=== PATIENT | male | born 1955 | race Caucasian/White ===

== ENCOUNTER 2016-12-14 05:50 | Inpatient (IN) | payer BC ==
[~2016-12-14] VITALS: Ht 182.9 cm; Wt 100.2 kg
[2016-12-14] MEDS ORDERED: SOD CHLORIDE 0.9% 1,000 ML IV SCH (08:00)
[2016-12-14] MEDS ORDERED: ACETAMINOPHEN 325 MG TAB PO PRN (08:00)
[2016-12-14] MEDS: NICOTINE (21 MG/24 HR) PATCH TRANSDERM SCH (08:17)
[2016-12-14] MEDS: PANTOPRAZOLE 40 MG INJ IV SCH (08:17)
[2016-12-14] MEDS: PIPER-TAZO 3.375 GM IV (PMX) 100 ML IVPB SCH ×3 (08:17→22:45)
[2016-12-14] MEDS: morphine 2 MG INJ IV PRN ×2 (08:20→12:39)
[2016-12-14] MEDS: DEXTROSE 5%-0.9% NACL 1,000 ML IV SCH ×2 (08:28→20:45)
[2016-12-14 08:41] VITALS: BP 117/66; RESP 20
[2016-12-14 12:17] VITALS: BP 117/66; PULSE 79; RESP 20
--- NOTE | 2016-12-14 13:55 | HP ---
Date/Time of Note Date/Time of Note DATE: 12/14/16 TIME: 13:48 Assessment/Plan VTE Prophylaxis VTE Prophylaxis Intervention: ambulation Lines/Catheters IV Catheter Type (from Nrs): Peripheral IV Urinary Cath still in place: No Assessment/Plan Chief Complaint/Hosp Course 1. Anorectal fistula with skin abscess 2.SIRS 3. BPH 4. erectile dysfunction 5. Nicotine dependence Problems: Assessment/Plan 1. Keep NPO for possible surgery 2. Dr Goncalves for I and D 3. Lactobacili after pt is not NPO 4. Start Tamsulosin after procedure 5. Continue a/b HPI/ROS Admit Date/Time Admit Date/Time Dec 14, 2016 at 07:04 Hx of Present Illness Pt rreported that he was sitting on the cold cement for hours and after developed pain in right buttock. He had pain for 2 days and then he pt went to [facility] ER at the midnight complaining of pararectal pain and itching. Per Insurance he was transferred to [facility]. Denied any other symptoms. ROS Respiratory: cough, pain, No no complaints, No other, No pleuritic pain, No shortness of breath, No sputum, No wheezing Cardiovascular: chest pain, edema, No lightheadedness, No no complaints, No orthopenea, No other, No palpitations, No paroxysmal nocturnal dyspnea Genitourinary: bleeding, discharge, dysuria, flank pain, hematuria, no complaints, other (rectile dysfunction) Musculoskeletal: back pain, No bone/joint pain, No neck pain, No no complaints, No other, No restricted range of motion, No swelling Neurologic: confusion, headache, syncope, No dizziness, No focal-weakness, No no complaints, No other, No seizure PMH/Family/Social Past Medical History Medical History: other (pulmonary embolism) Past Surgical History Past Surgical Hx: other (I finger right hand ingrown nail removal) Family History Significant Family History: hypertension (mother) Social History Alcohol Use: occasionally Smoking Status: Current every day smoker Drug Use: none Exam/Review of Systems Vital Signs Vitals Vital Signs Date Time Temp Pulse Resp B/P Pulse Ox O2 Delivery O2 Flow Rate FiO2 12/14/16 12:17 98.7 79 20 117/66 98 Room Air Exam Constitutional: alert, oriented ENMT: nl external ears & nose Neck: supple Respiratory: clear to auscultation Genitourinary - Male: nl penis, nl scrotum Extremities: normal pulses Skin: nl turgor, other (right side buttock abscess) Medications Medications Current Medications Pantoprazole (Protonix Iv) 40 mg DAILY@06 IV Last administered on 12/14/16 08: 17; Admin Dose 40 MG; Start 12/14/16 at 08:30 Acetaminophen 650 mg 650 mg Q6H PRN PO PAIN AND OR ELEVATED TEMP; Start at 08:00 Piperacillin Sod/ Tazobactam Sod (Zosyn 3.375gm/ 100 ml (Pmx)) 100 ml @ 200 mls /hr Q8 IVPB Last administered on 12/14/16 08:17; Admin Dose 200 MLS/HR; Start 12/14/16 at 08:30 Morphine Sulfate (morphine) 2 mg Q4H PRN IV PAIN Last administered on 12:39; Admin Dose 2 MG; Start 12/14/16 at 08:00 Nicotine 1 patch 1 patch DAILY TRANSDERM Last administered on 12/14/16 08:17; Admin Dose 1 PATCH; Start 12/14/16 at 09:00 Dextrose/Sodium Chloride (D5-NS) 1,000 ml @ 75 mls/hr [id number] IV Last administered on 12/14/16 08:28; Admin Dose 75 MLS/HR; Start 12/14/16 at 08:30 Influenza Virus Vaccine (Fluzone) 0.5 ml ONCE ONCE IM* ; Start 12/15/16 at 09:00 ; Stop 12/15/16 at 09:01 HEAVEN SEXTON Dec 14, 2016 13:55
[2016-12-14 14:30] VITALS: BP 120/70; RESP 20
[2016-12-14 20:16] VITALS: BP 108/55; RESP 20
[2016-12-14] MEDS ORDERED: LIDOCAINE 2%/EPI MPF (SDV) 20 ML VIAL INJ ONE (20:30)
--- NOTE | 2016-12-14 20:39 | CONS ---
Date/Time of Note Date/Time of Note DATE: 12/14/16 TIME: 20:26 Assessment/Plan Assessment/Plan Chief Complaint/Hosp Course 1. Right buttock abscess: CT pelvis showing fluid filled elongated tract from right anorectal junction to right gluteal fat extending to skin surface -I&D today -local care -hot packs -abx -cultures 2. Leukocytosis: likely 2/2 above -abx -as above 3. BPH -medical management 4. Obesity:BMI 30 -weight management -diet and exercise optimization Thank you. Patient seen and examined in collaboration with Dr. Maciej Goncalves. Problems: Consultation Date/Type/Reason Admit Date/Time Dec 14, 2016 at 07:04 Date of Consultation: Dec 14, 2016 Type of Consultation: surgical Reason for Consultation abscess of right buttock Referring Provider: HEAVEN SEXTON Hx of Present Illness Abel Waite is a 61 yo man who was transferred to [facility] with complaints of right buttock pain. He reports that the pain began a few days ago after sitting on the concrete for a prolonged period of time. He denies injury or injecting anything into the area. Upon assessment he has a fluid filled area with erythema. He denies drainage from the area. He denies fevers, chills, sob, congested cough, cp, palpitations. General surgery was asked to evaluate. Respiratory: cough, pain, No no complaints, No other, No pleuritic pain, No shortness of breath, No sputum, No wheezing Cardiovascular: chest pain, edema, No lightheadedness, No no complaints, No orthopenea, No other, No palpitations, No paroxysmal nocturnal dyspnea Genitourinary: bleeding, discharge, dysuria, flank pain, hematuria, no complaints, other (rectile dysfunction) Musculoskeletal: back pain, No bone/joint pain, No neck pain, No no complaints, No other, No restricted range of motion, No swelling Neurologic: confusion, headache, syncope, No dizziness, No focal-weakness, No no complaints, No other, No seizure Past Medical History Medical History: other (pulmonary embolism) Past Surgical History Past Surgical Hx: other (ingrown nail removal) Family History Significant Family History: no pertinent family hx Social History Alcohol Use: occasionally Smoking Status: Current every day smoker Drug Use: none Exam/Review of Systems Vital Signs Vitals Vital Signs Date Time Temp Pulse Resp B/P Pulse Ox O2 Delivery O2 Flow Rate FiO2 12/14/16 14:30 98.1 78 20 120/70 98 12/14/16 12:17 Room Air Exam Constitutional: alert, oriented Psych: anxiety Head: atraumatic, normocephalic Eyes: nl lids, nl sclera ENMT: mucosa pink and moist, nl nasal mucosa & septum Neck: non-tender, supple Cardiovascular: nl pulses, regular rate and rhythm Gastrointestinal: non-tender, soft Genitourinary - Male: nl penis, nl scrotum Musculoskeletal: nl extremities to inspection Extremities: normal pulses Neurological: nl mental status, nl speech, nl strength Skin: other (right buttock erythema with area of fluctuance, tender) Medications Medications Current Medications Pantoprazole (Protonix Iv) 40 mg DAILY@06 IV Last administered on 12/14/16 08: 17; Admin Dose 40 MG; Start 12/14/16 at 08:30 Acetaminophen 650 mg 650 mg Q6H PRN PO PAIN AND OR ELEVATED TEMP; Start at 08:00 Piperacillin Sod/ Tazobactam Sod (Zosyn 3.375gm/ 100 ml (Pmx)) 100 ml @ 200 mls /hr Q8 IVPB Last administered on 12/14/16 15:16; Admin Dose 200 MLS/HR; Start 12/14/16 at 08:30 Nicotine 1 patch 1 patch DAILY TRANSDERM Last administered on 12/14/16 08:17; Admin Dose 1 PATCH; Start 12/14/16 at 09:00 Dextrose/Sodium Chloride (D5-NS) 1,000 ml @ 100 mls/hr Q10H IV Last administered on 12/14/16 08:28; Admin Dose 75 MLS/HR; Start 12/14/16 at 08:30 Influenza Virus Vaccine (Fluzone) 0.5 ml ONCE ONCE IM* ; Start 12/15/16 at 09:00 ; Stop 12/15/16 at 09:01 Tamsulosin HCl (Flomax) 0.4 mg ONCE ONCE PO ; Start 12/15/16 at 09:00; Stop at 09:01 Lactobacillus Acidophilus/ Rhamnosus (Culturelle) 1 cap BID PO ; Start 12/15/16 at 09:00 Morphine Sulfate (morphine) 2 mg Q3H PRN IV PAIN; Start 12/14/16 at 18:00 Lidocaine/ Epinephrine (Xylocaine 2%/ Epi Mpf(Sdv)) 20 ml ONCE ONCE INJ ; Start 12/14/16 at 20:30; Stop 12/14/16 at 20:31 ABRAM ABRAHAM NP Dec 14, 2016 20:37
--- NOTE | 2016-12-14 21:13 | OPR ---
Date/Time of Note Date/Time of Note DATE: 12/14/16 TIME: 21:13 Operative Report Procedure Date: Dec 14, 2016 Preoperative Diagnosis Right buttock abscess Postoperative Diagnosis Right buttock abscess Operation/Procedure Performed Incision and Drainage right buttock abscess Surgeon see signature line Sink Maker none Anesthesia Type: other Estimated Blood Loss: 0 - 10 ml's Transfusion none Specimen none; cultures sent Grafts/Implants none Complications none Indications per notes Procedure Description r/b/a were fully reviewed and agreed upon Patient placed on his bed lateral decubitus. Area prepped and draped in sterile fashion. Time out done. Local anesthetic administered to right buttock. Incision was made into the abscess cavity of the right buttock and pus drained. Using manual pressure pus was also expelled from surrounding tissue. Wound culture was obtained. Wound was irrigated and packed with iodoform packing strips. Covered with 4x4 gauze and abd pad. ABRAM ABRAHAM NP Dec 14, 2016 21:13
[2016-12-15 02:17] VITALS: BP 100/53; RESP 19
[2016-12-15] MEDS: DEXTROSE 5%-0.9% NACL 1,000 ML IV SCH ×2 (04:34→06:45)
[2016-12-15] MEDS: morphine 2 MG INJ IV PRN ×2 (04:39→18:03)
[2016-12-15 06:34] LABS: BASOPHIL # 0.1 10^3/ul (0.0-0.1); BASOPHILS % 0.7 % (0.0-2.0); EOSINOPHILS # 0.2 10^3/ul (0.0-0.5); EOSINOPHILS % 1.9 % (0.0-7.0); HEMATOCRIT 45.8 % (42.0-52.0); HEMOGLOBIN 15.1 g/dl (14.0-18.0); LYMPHOCYTES # 2.3 10^3/ul (0.8-2.9); LYMPHOCYTES % 24.2 % (15.0-51.0); MEAN CORPUSCULAR HEMOGLOBIN 29.6 pg (29.0-33.0); MEAN CORPUSCULAR VOLUME 89.8 fl (82.0-101.0); MEAN PLATELET VOLUME 9.9 fl (7.4-10.4); MONOCYTE # 0.9 10^3/ul (0.3-0.9); MONOCYTES % 9.3 % (0.0-11.0); NEUTROPHILS % 63.6 % (39.0-77.0); PLATELET COUNT 172 10^3/UL (140-415); RED CELL DISTRIBUTION WIDTH 12.4 % (11.5-14.5); WHITE BLOOD COUNT 9.4 10^3/ul (4.8-10.8)
[2016-12-15] MEDS: PIPER-TAZO 3.375 GM IV (PMX) 100 ML IVPB SCH ×3 (06:42→21:25)
[2016-12-15] MEDS: PANTOPRAZOLE 40 MG INJ IV SCH (06:42)
[2016-12-15 07:36] LABS: CREATININE 0.95 mg/dl (0.61-1.24)
[2016-12-15 08:44] VITALS: BP 111/60; RESP 18
[2016-12-15] MEDS ORDERED: TAMSULOSIN (SR) 0.4 MG CAP PO ONE (09:00)
[2016-12-15] MEDS ORDERED: INFLUENZA VIRUS VACCINE 0.5 ML SYG IM* ONE (09:00)
[2016-12-15] MEDS: NICOTINE (21 MG/24 HR) PATCH TRANSDERM SCH (09:01)
[2016-12-15] MEDS: LACTOBACILLUS RHAMNOSUS CAP PO SCH ×2 (12:02→21:25)
[2016-12-15] MEDS: SODIUM HYPOCHLORITE 1/40% 1L IRRIG IRR SCH (12:05)
--- NOTE | 2016-12-15 12:48 | PN ---
Date/Time of Note Date/Time of Note DATE: 12/15/16 TIME: 12:46 Assessment/Plan VTE Prophylaxis VTE Prophylaxis Intervention: ambulation Lines/Catheters IV Catheter Type (from Nrs): Peripheral IV Urinary Cath still in place: No Assessment/Plan Chief Complaint/Hosp Course 1. Anorectal fistula with skin abscess. S/p Iand D 2. SIRS 3. BPH 4. erectile dysfunction 5. Nicotine dependence 6. Overweight Problems: Assessment/Plan 1. continue wound care 2. Continue a/b and probiotics 3. Control BPH Subjective 24 Hr Interval Summary Constitutional: improved, no complaints Musculoskeletal: swelling (buttock) Exam/Review of Systems Vital Signs Vitals Vital Signs Date Time Temp Pulse Resp B/P Pulse Ox O2 Delivery O2 Flow Rate FiO2 12/15/16 08:44 98.5 71 18 111/60 97 12/14/16 12:17 Room Air Intake and Output 12/14/16 12/14/16 12/15/16 15:00 23:00 07:00 Intake Total 100 ml 935 ml 1050 ml Output Total 1000 ml Balance 100 ml 935 ml 50 ml Exam Gastrointestinal: surgical scars (right buttock) Results Result Diagram: 12/15/1652112/15/1622 Results 24 hrs Laboratory Tests Test 12/15/16 05:22 White Blood Count 9.4 Red Blood Count 5.10 Hemoglobin 15.1 Hematocrit 45.8 Mean Corpuscular Volume 89.8 Mean Corpuscular Hemoglobin 29.6 Mean Corpuscular Hemoglobin Concent 33.0 Red Cell Distribution Width 12.4 Platelet Count 172 Mean Platelet Volume 9.9 Neutrophils % 63.6 Lymphocytes % 24.2 Monocytes % 9.3 Eosinophils % 1.9 Basophils % 0.7 Nucleated Red Blood Cells % 0.0 Neutrophils # 6.0 Lymphocytes # 2.3 Monocytes # 0.9 Eosinophils # 0.2 Basophils # 0.1 Nucleated Red Blood Cells # 0.0 Sodium Level 141 Potassium Level 4.0 Chloride Level 110 Carbon Dioxide Level 23 Anion Gap 12 Blood Urea Nitrogen 9 Creatinine 0.95 Glucose Level 101 Calcium Level 8.0 L Medications Medications Current Medications Pantoprazole (Protonix Iv) 40 mg DAILY@06 IV Last administered on 12/15/16t 06: 42; Admin Dose 40 MG; Start 12/14/16 at 08:30 Acetaminophen 650 mg 650 mg Q6H PRN PO PAIN AND OR ELEVATED TEMP; Start at 08:00 Piperacillin Sod/ Tazobactam Sod (Zosyn 3.375gm/ 100 ml (Pmx)) 100 ml @ 200 mls /hr Q8 IVPB Last administered on 12/15/16 06:42; Admin Dose 200 MLS/HR; Start 12/14/16 at 08:30 Nicotine 1 patch 1 patch DAILY TRANSDERM Last administered on 12/15/16 09:01; Admin Dose 1 PATCH; Start 12/14/16 at 09:00 Dextrose/Sodium Chloride (D5-NS) 1,000 ml @ 100 mls/hr Q10H IV Last administered on 12/15/16 04:34; Admin Dose 100 MLS/HR; Start 12/14/16 at 08:30 Lactobacillus Acidophilus/ Rhamnosus (Culturelle) 1 cap BID PO Last administered on 12/15/16 12:02; Admin Dose 1 CAP; Start 12/15/16 at 09:00 Morphine Sulfate (morphine) 2 mg Q3H PRN IV PAIN Last administered on 04:39; Admin Dose 2 MG; Start 12/14/16 at 18:00 Sodium Hypochlorite (Dakin'S (Dilute 1/40%)) 1 applic DAILY IRR Last administered on 12/15/16 12:05; Admin Dose 1 APPLIC; Start 12/15/16 at 09:00 HEAVEN SEXTON Dec 15, 2016 12:48
[2016-12-15] MEDS ORDERED: HYDROCODONE/APAP (5/325) TAB GTB PRN (13:00)
--- NOTE | 2016-12-15 13:54 | PN ---
Date/Time of Note Date/Time of Note DATE: 12/15/16 TIME: 13:47 Assessment/Plan Lines/Catheters IV Catheter Type (from [facility]): Peripheral IV Chaves in Place (from [facility]): No Assessment/Plan Chief Complaint/Hosp Course 1. Right buttock abscess: CT pelvis showing fluid filled elongated tract from right anorectal junction to right gluteal fat extending to skin surface; s/p I&D ; cultures pending -continue local care -hot packs -abx -patient may be discharged per medical team with wound care 2. Leukocytosis: likely 2/2 above: normalized -abx -as above 3. BPH -medical management 4. Obesity:BMI 30 -weight management -diet and exercise optimization Thank you. Patient seen and examined in collaboration with Dr. Maciej Goncalves. Problems: Subjective 24 Hr Interval Summary Pain in buttock much improved. Leukocytosis improved. No fevers, chills, sob, congested cough, n/v/d/dysuria, [place], dizziness, cp, palpitations. Wound with mod drainage. Exam/Review of Systems Vital Signs Vitals Vital Signs Date Time Temp Pulse Resp B/P Pulse Ox O2 Delivery O2 Flow Rate FiO2 12/15/16 08:44 98.5 71 18 111/60 97 12/14/16 12:17 Room Air Intake and Output 12/14/16 12/14/16 12/15/16 15:00 23:00 07:00 Intake Total 100 ml 935 ml 1050 ml Output Total 1000 ml Balance 100 ml 935 ml 50 ml Exam Free Text/Dictation Constitutional: alert, oriented Psych: anxiety Head: atraumatic, normocephalic Eyes: nl lids, nl sclera ENMT: mucosa pink and moist, nl nasal mucosa & septum Neck: non-tender, supple Cardiovascular: nl pulses, regular rate and rhythm Gastrointestinal: non-tender, soft Genitourinary - Male: nl penis, nl scrotum Musculoskeletal: nl extremities to inspection Extremities: normal pulses Neurological: nl mental status, nl speech, nl strength Skin: other (right buttock packed with mod drainage, improved tenderness) Results Result Diagram: 12/15/16 0522 12/15/16 0522 ABRAM ABRAHAM NP Dec 15, 2016 13:54
[2016-12-15 15:22] VITALS: BP 116/57; RESP 18
[2016-12-15 19:36] VITALS: BP 121/74; RESP 18
[2016-12-16 02:05] VITALS: BP 114/56; RESP 20
[2016-12-16 05:58] LABS: BASOPHIL # 0.1 10^3/ul (0.0-0.1); BASOPHILS % 0.9 % (0.0-2.0); EOSINOPHILS # 0.3 10^3/ul (0.0-0.5); EOSINOPHILS % 3.6 % (0.0-7.0); HEMATOCRIT 45.8 % (42.0-52.0); HEMOGLOBIN 15.3 g/dl (14.0-18.0); LYMPHOCYTES # 2.4 10^3/ul (0.8-2.9); LYMPHOCYTES % 33.6 % (15.0-51.0); MEAN CORPUSCULAR HEMOGLOBIN 30.4 pg (29.0-33.0); MEAN CORPUSCULAR HGB CONC 33.4 g/dl (32.0-37.0); MEAN CORPUSCULAR VOLUME 90.9 fl (82.0-101.0); MEAN PLATELET VOLUME 9.8 fl (7.4-10.4); MONOCYTE # 0.6 10^3/ul (0.3-0.9); MONOCYTES % 9.1 % (0.0-11.0); NEUTROPHIL # 3.7 10^3/ul (1.6-7.5); NEUTROPHILS % 52.7 % (39.0-77.0); PLATELET COUNT 182 10^3/UL (140-415); RED BLOOD COUNT 5.04 10^6/ul (4.70-6.10); RED CELL DISTRIBUTION WIDTH 12.2 % (11.5-14.5)
[2016-12-16] MEDS ORDERED: PANTOPRAZOLE (EC) 40 MG TAB PO SCH (06:00)
[2016-12-16] MEDS: PIPER-TAZO 3.375 GM IV (PMX) 100 ML IVPB SCH ×3 (06:00→15:15)
[2016-12-16 06:30] LABS: CALCIUM 8.7 mg/dl (8.4-10.2); CREATININE 0.96 mg/dl (0.61-1.24)
[2016-12-16 08:16] VITALS: BP 128/70; RESP 20
[2016-12-16] MEDS: NICOTINE (21 MG/24 HR) PATCH TRANSDERM SCH (08:42)
[2016-12-16] MEDS: LACTOBACILLUS RHAMNOSUS CAP PO SCH (08:42)
[2016-12-16] MEDS: SODIUM HYPOCHLORITE 1/40% 1L IRRIG IRR SCH (08:43)
--- NOTE | 2016-12-16 10:07 | PDOCDIS ---
Discharge Instructions CONDITION Patient Condition: Good HOME CARE INSTRUCTIONS: Special Diet: NPO ACTIVITY: Activity Restrictions: Slowly Increase Activity FOLLOW UP/APPOINTMENTS Follow-up Plan f/u own pcp [address] saldana 1 wk PAPO LAMBERT MD Dec 16, 2016 10:07
[2016-12-16] MEDS ORDERED: AMOX1TAB10 PO (10:09)
[2016-12-16] MEDS ORDERED: LACT1CAP28 PO (10:09)
[2016-12-16] MEDS ORDERED: HYDR-3498 GTB (10:09)
[2016-12-16] MEDS ORDERED: BISA-57 PO (10:09)
--- NOTE | 2016-12-16 13:09 | PN ---
Date/Time of Note Date/Time of Note DATE: 12/16/16 TIME: 13:05 Assessment/Plan Lines/Catheters IV Catheter Type (from [facility]): Saline Lock Chaves in Place (from [facility]): No Assessment/Plan Chief Complaint/Hosp Course 1. Right buttock abscess: CT pelvis showing fluid filled elongated tract from right anorectal junction to right gluteal fat extending to skin surface; s/p I&D ; cultures pending -continue local care -hot packs -abx -patient may be discharged per medical team with wound care; to follow in office 2. Leukocytosis: likely 2/2 above: normalized -abx -as above 3. BPH -medical management 4. Obesity:BMI 30 -weight management -diet and exercise optimization Thank you. Patient seen and examined in collaboration with Dr. Maciej Goncalves. Problems: Subjective 24 Hr Interval Summary Feels much improved. Improved drainage and pain from buttock. No fevers, chills , sob, congested cough, n/v/d/dysuria. +bowel function without change in rectal sphincter tone. Exam/Review of Systems Vital Signs Vitals Vital Signs Date Time Temp Pulse Resp B/P Pulse Ox O2 Delivery O2 Flow Rate FiO2 12/16/16 08:16 98.1 79 20 128/70 96 12/14/16 12:17 Room Air Intake and Output 12/15/16 12/15/16 12/16/16 15:00 23:00 07:00 Intake Total 950 ml 1050 ml 560 ml Output Total 1500 ml 450 ml Balance 950 ml -450 ml 110 ml Exam Free Text/Dictation Constitutional: alert, oriented Psych: anxiety Head: atraumatic, normocephalic Eyes: nl lids, nl sclera ENMT: mucosa pink and moist, nl nasal mucosa & septum Neck: non-tender, supple Cardiovascular: nl pulses, regular rate and rhythm Gastrointestinal: non-tender, soft Genitourinary - Male: nl penis, nl scrotum Musculoskeletal: nl extremities to inspection Extremities: normal pulses Neurological: nl mental status, nl speech, nl strength Skin: other (right buttock packed with min drainage, improved tenderness/pain) Results Result Diagram: 12/16/16 0504 12/16/16 0504 ABRAM ABRAHAM NP Dec 16, 2016 13:09
[2016-12-16 16:25] VITALS: BP 113/64; RESP 20
== END 2016-12-16 16:56 | disposition home health service (06) | DRG 395 ==
LOC: PP2 07:04
PROVIDERS: ADMIT Internal Medicine Nephrology; ATTEND Internal Medicine Nephrology
PROC: 0H98XZX Drainage of Buttock Skin, External Approach, Diagnostic (ICD-10-PCS; principal; 2016-12-14)
DX: K61.1 Rectal abscess (principal); B95.4 Other streptococcus as the cause of diseases classified elsewhere; E66.9 Obesity, unspecified; N52.9 Male erectile dysfunction, unspecified; N40.0 Benign prostatic hyperplasia without lower urinary tract symptoms; F17.200 Nicotine dependence, unspecified, uncomplicated; Z68.30 Body mass index [BMI] 30.0-30.9, adult; D72.829 Elevated white blood cell count, unspecified; Z86.711 Personal history of pulmonary embolism
CPT/HCPCS: 80048; 85025; 87070; 90686; C9113; J2270; J2543; J7030; J7042

== ENCOUNTER 2017-09-23 12:23 | Emergency (ER) | END 2017-09-23 14:34 | disposition home or self-care (01) ==